=== PATIENT | male | born 2005 | race Hispanic/Latino ===

== ENCOUNTER 2023-09-09 08:51 | Emergency (ER) | payer OTHER, SELFPAY ==
[2023-09-09] MEDS ORDERED: Ketorolac Tromethamine 30 MG/ML VIAL ONE (09:46)
[2023-09-09] MEDS ORDERED: HYDROcodone/Acetaminophen 5/325 mg Tablet ONE (09:46)
== END 2023-09-09 11:14 | disposition home or self-care (01) ==
LOC: ERS 08:51
DX: S63.502A Unspecified sprain of left wrist, initial encounter (principal); W19.XXXA Unspecified fall, initial encounter
CPT/HCPCS: 96372; J1885

== ENCOUNTER 2023-09-15 15:40 | Emergency (ER) | payer SELFPAY ==
[2023-09-15] MEDS ORDERED: Ibuprofen 200 MG TAB ONE (18:02)
== END 2023-09-15 18:07 | disposition home or self-care (01) ==
LOC: ERS 15:40
DX: M25.532 Pain in left wrist (principal)